=== PATIENT | male | born 1960 | race Two or more races ===

== ENCOUNTER 2018-01-15 05:53 | Day surgery (SDC) | payer OTHER ==
[2018-01-08 12:31] VITALS: BMI 34.0
[2018-01-15] MEDS ORDERED: MIDAZOLAM HCL 2 MG/2 ML SINGLE DOSE VIAL ONE ×2 (07:08→08:55)
[2018-01-15] MEDS ORDERED: ROPIVACAINE HCL 0.5% 30ML VIAL ONE (07:08)
[2018-01-15] MEDS ORDERED: DEXAMETHASONE SOD PHOSPHATE/PF 10 MG/ML SDV ONE (07:08)
[2018-01-15] MEDS ORDERED: PROPOFOL 20 ML ONE ×9 (07:10→10:43)
[2018-01-15] MEDS ORDERED: ePHEDrine SULFATE 50 MG/1 ML AMPULE ONE (07:10)
[2018-01-15] MEDS ORDERED: ceFAZolin SODIUM 1 GM VIAL ONE (07:11)
[2018-01-15] MEDS ORDERED: EPINEPHrine 1:1,000 1 MG/1 ML - 30ML VIAL (INJECTION) ONE (07:21)
[2018-01-15] MEDS ORDERED: LIDOCAINE 1%/EPI 1:100000 (20 ML MULTI DOSE VIAL) ONE (10:31)
[2018-01-15] MEDS ORDERED: BACITRACIN 15 GM TUBE TOPICAL OINTMENT ONE (11:08)
[2018-01-15 11:51] VITALS: TEMP 97.6
[2018-01-15] MEDS ORDERED: ONDANSETRON 4 MG/2 ML VIAL IVPUSH PRN (11:58)
[2018-01-15] MEDS ORDERED: oxyCODONE HCL 5 MG TABLET PO PRN ×2 (11:58)
[2018-01-15] MEDS ORDERED: LACTATED RINGERS SOLUTION 1,000 ML IV SCH (12:00)
--- NOTE | 2018-01-15 12:34 | OP ---
Operative Note - Note: Operative Date: 01/15/18 Pre-Operative Diagnosis: right shoulder rotator cuff tear Operation: right shoulder arthroscopy. rotator cuff repair. debridement. manipulation under anesthesia. biceps tenodesis. subacromial decompression Findings: s Implants: swivel lock x2, push lock x1, biceps button x1 Post-Operative Diagnosis: Same as Pre-op (+ arthrofibrosis) Surgeon: Rolo Rivera Senior Service Technician: Enoch Nick Anesthesiologist/DRY WALL INSTALLER: Enoch Reza Anesthesia: Fractional Operative Report Dictated: Yes
[2018-01-15 13:16] VITALS: BP 154/96; PULSE 71
--- NOTE | 2018-01-15 13:40 | OP ---
DATE OF OPERATION: 01/15/2018 PREOPERATIVE DIAGNOSIS: Right shoulder rotator cuff tear. POSTOPERATIVE DIAGNOSIS: Right shoulder rotator cuff tear plus biceps tendinosis. PROCEDURE: Right shoulder arthroscopy with rotator cuff repair, biceps tenodesis, subacromial decompression, extensive debridement of the labrum, capsule, bursa, manipulation under anesthesia. SURGEON: Pawel Jackson MD DIRECTOR OPERATIONS: AQUILES Hunter, whose skillful assistance was necessary for the safe and timely performance of this procedure. Mr. Nick was able to help drive the camera, assist in suture passage, assist in insertion of orthopedic fixation hardware, help with retraction and limb positioning, as well. ANESTHESIA: Regional. POSTOPERATIVE CONDITION: Stable. COMPLICATIONS: None. BLOOD LOSS: 50 mL. IMPLANTS: Arthrex SwiveLock x2, biceps button x1, suture tack x1. 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 MRI demonstrated rotator cuff tear. Treatment options including nonoperative versus operative treatment were reviewed. Operative risks were reviewed in detail including bleeding, infection, neurovascular injury, need for further surgery, postoperative pain and stiffness, re-rupture or failure to heal, permanent loss of strength, permanent loss of motion. We discussed medical risks such as heart attack, stroke, DVT, PE, and . We discussed the use of perioperative antibiotic and DVT prophylaxis. We reviewed the rehabilitation protocol, which is lengthy and discomforting. I addressed all the patients questions and concerns. He voiced understanding and elected to proceed. DESCRIPTION OF PROCEDURE: The patient was brought to the operating room after he had previously been given a block in the preoperative holding area. He was placed in the beach-chair position, taking care to pad all the bony prominences. The right upper extremity was then prepped and draped in the usual sterile fashion. A preoperative does of antibiotics was given, and the usual time-out procedure was performed. A preoperative examination of the right upper extremity demonstrated forward flexion to 140 degrees. Gentle manipulation went out for 170 degrees. External rotation was to 60 degrees without a particular limit. At this point, the portals were marked out. The posterior viewing portal was established, and the arthroscopic was passed into the glenohumeral joint. On initial exam, there was minimal articular cartilage wear. There was slight fraying. Examination of the labrum demonstrated some fraying about the superior labrum. However, no gross labral tear was identified. An anterior portal was now established under spinal needle localization. Examination of the biceps demonstrated that it had flattened out significantly as it got towards the entrance to the bicipital groove consistent with tendinosis. The biceps tendon given this tendinosis was now released using a straight biter. A shaver was used to smooth the base. Electrocautery was used to dissect along the rotator cuff interval, which was debrided to help prevent future adhesions following surgery. The subscapularis was identified and was found to be 100% intact. It was probed and also remained stable. The supraspinatus and infraspinatus were noted to be completely avulsed off the greater tuberosity. The arthroscope was now withdrawn from the joint. It was passed into the subacromial space. Here, the greater tuberosity was debrided. There was significant subacromial impingement morphology, and therefore a soft tissue and bony subacromial decompression were completed using electrocautery as well as the pablo. The rotator cuff was now mobilized, utilizing blunt dissection as well as the electrocautery to free it, performing subacromial decompression, extending all the way back to the scapular spine. The coracohumeral ligament was released in order to provide better mobilization, as well. The footprint was medialized by approximately 5 mm to allow for more healing area. The tear was felt to be a retracted V shape. A [id number] suture was placed in the mid portion of the V to close down the split portion. The posterior leaf was then passed using a SutureTape suture. This was then placed into a Knotless anchor. The Knotless anchor was inserted anterolaterally, drawing the posterior leaflet both laterally and anterior. This was secured with Knotless technique. The same technique was then repeated for the anterior leaf, albeit posterolateral, again drawing the anterior leaf lateral and posterior. Extra sutures from the anterior anchor were then used to be passed in a horizontal mattress fashion into the most anterior portion of the cuff further securing it. To further secure the most posterior aspect of the cuff, 3-0 SutureTak anchor was inserted and then this was tied securing the most posterior aspect of the infraspinatus. At this point, the repair had restored approximately 80% to 905 of the footprints. A small area anterior was still uncovered. No further tissue was able to be mobilized to cover this area. The excess fluid was withdrawn from the subacromial space at this time. The portals were sutured using 3-0 nylon. Attention was now turned to the anterior aspect of the shoulder. Incision was planned out along Langers line to the skin over the pectoralis major tendon. This was carried down through skin to subcutaneous tissue. Blunt spreading was used to expose the pectoralis tendon. Finger dissection was then carried under, and the biceps tendon, which had previously been released, was drawn out the wound. It was then whipstitched extending from the musculotendinous junction up approximately 18 mm. The excess tendon was then debrided. The guide pin for a biceps button was then delivered onto the drill. Rasp was used to roughen the biceps groove. The guide pin was then inserted into the canal. This was then drilled through the cortex into the humeral canal. It was then removed. The button was inserted into the hole. The suture from the biceps was passed through the button, and then, passed using a straight needle back through the tendon. The button was inserted into the hole, and then, the tendon was toggled up and tied into place. Good tension was achieved. This wound was now copiously irrigated. Then, 4-0 Vicryl was used to close the wound here. Patient was then sterilely dressed. He was placed into a sling. He was transferred to the recovery room in stable condition. PAWEL JACKSON M.D. [id number]
== END 2018-01-15 13:16 | disposition home or self-care (01) ==
LOC: FASU 05:53
PROVIDERS: ATTEND Orthopaedic Surgery Sports Medicine
PROC: 0RNJ4ZZ Release Right Shoulder Joint, Percutaneous Endoscopic Approach (ICD-10-PCS; 2018-01-15)
PROC: 0RBJ4ZZ Excision of Right Shoulder Joint, Percutaneous Endoscopic Approach (ICD-10-PCS; 2018-01-15)
PROC: 0LB14ZZ Excision of Right Shoulder Tendon, Percutaneous Endoscopic Approach (ICD-10-PCS; principal; 2018-01-15 08:18)
PROC: 0LS14ZZ Reposition Right Shoulder Tendon, Percutaneous Endoscopic Approach (ICD-10-PCS; 2018-01-15 08:18)
DX: M75.121 Complete rotator cuff tear or rupture of right shoulder, not specified as traumatic (principal); M75.21 Bicipital tendinitis, right shoulder
CPT/HCPCS: 94760